=== PATIENT | male | born 1960 | race Caucasian/White ===

== ENCOUNTER 2022-05-29 08:40 | Outpatient (CLI) | payer OTHER, BC, SELFPAY ==
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
== END 2022-05-29 08:41 | disposition home or self-care (01) ==
LOC: CT 08:42
PROVIDERS: PCP Family Medicine; Visit Provider Physician Assistant
DX: M25.512 Pain in left shoulder (principal); S42.102A Fracture of unspecified part of scapula, left shoulder, initial encounter for closed fracture
CPT/HCPCS: 73200